=== PATIENT | female | born 1965 | race Caucasian/White ===

== ENCOUNTER 2017-01-05 09:59 | Emergency (ER) | payer BC ==
--- NOTE | 2017-01-05 11:14 | UC ---
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 developed a sore throat, fever and coungestion over the past 2 days. - History of Current Complaint Stated Complaint: SINUSES Time Seen by Provider: 01/05/17 11:08 Hx Obtained From: Patient Hx Last Menstrual Period: 03/30/15 ?: No Onset/Duration: Sudden Onset, Lasting Days Severity: Moderate Cough: Nonproductive Associated Signs & Symptoms: Positive: Dysphagia, Hoarseness, Sinus Discomfort, Fever - Allergies/Home Medications Allergies/Adverse Reactions: Allergies Allergy/AdvReac Type Severity Reaction Status Date / Time Hydrocodone Allergy Intermediate NIGHTMARES Verified 01/05/17 11:30 environmental Allergy Eyes Uncoded 01/05/17 11:30 Itchy/Swollen/Red/Watery PMH/Surg Hx/FS Hx/Imm Hx Previously Healthy: Yes Endocrine History Of: Denies: Diabetes, Thyroid Disease Cardiovascular History Of: Denies: Cardiac Disorders Respiratory History Of: Denies: Asthma - Surgical History Surgical History: Yes Surgery Procedure, Year, and Place: left shoulder, left knee. UTERINE ABLATION - Family History Known Family History: Negative: Hypertension - Social History Alcohol Use: None Substance Use Type: None Smoking Status (MU): Never Smoked Tobacco Household Exposure Type: Cigarettes Review of Systems Constitutional: Fever, Fatigue Skin: Negative Eyes: Negative ENT: Sore Throat, Ear Ache, Nasal Discharge Respiratory: Cough Cardiovascular: Negative Gastrointestinal: Negative Genitourinary: Negative Motor: Negative Musculoskeletal: Negative Neurological: Headache Psychological: Negative All Other Systems Reviewed And Are Negative: Yes Physical Exam Triage Information Reviewed: Yes Appearance: Well-Nourished, Ill-Appearing, Pain Distress Vital Signs Reviewed: Yes Eye Exam: Normal Eyes: Positive: Conjunctiva Clear ENT: Positive: Pharyngeal erythema, Nasal congestion, TMs normal, Tonsillar swelling, Tonsillar exudate Dental Exam: Normal Neck exam: Normal Neck: Positive: Supple, Nontender, Enlarged Nodes @ - right cervical Respiratory Exam: Normal Respiratory: Positive: Chest non-tender, Lungs clear, Normal breath sounds Cardiovascular Exam: Normal Cardiovascular: Positive: RRR, No Murmur, Pulses Normal Abdominal Exam: Normal Abdomen Description: Positive: Nontender, No Organomegaly, Soft Bowel Sounds: Positive: Present Musculoskeletal Exam: Normal Musculoskeletal: Positive: Strength Intact, ROM Intact, No Edema Neurological Exam: Normal Neurological: Positive: Alert, Muscle Tone Normal Psychological Exam: Normal Skin Exam: Normal Throat Pain/Nasal Course/Dx - Course Course Of Treatment: hx obtained, exam performed, meds reviewed, rapid strep obtained and is negative. - Differential Dx/Diagnosis Differential Diagnosis/HQI/PQRI: Influenza, Laryngitis, Otitis Media, Pharyngitis, Sinusitis, URI Provider Diagnoses: Rhinosinusitis. pharyngitis Discharge - Discharge Plan Condition: Stable Disposition: HOME Patient Education Materials: Rhinosinusitis (ED), Pharyngitis (ED) Additional Instructions: 1. take the medication as prescribed. 2. Increase fluid intake and get plenty of rest. 3. Saline washes for the nose, and warm beverages to sooth the throat. 4. Follow up with any increase in symtpoms
[2017-01-05 11:30] VITALS: BP 120/80
== END 2017-01-05 11:55 | disposition home or self-care (01) ==
LOC: UCCORT 09:59
DX: J32.9 Chronic sinusitis, unspecified (principal); J02.9 Acute pharyngitis, unspecified; Z88.5 Allergy status to narcotic agent
CPT/HCPCS: 87651; 99212; G0463

== ENCOUNTER 2017-01-24 09:04 | Emergency (ER) | payer BC ==
[2017-01-24 11:37] VITALS: BP 120/79
--- NOTE | 2017-01-24 11:54 | UC ---
Respiratory Complaint HPI - HPI Summary HPI Summary: Pt presents with c/o cough and SOB and "chest congestion" X 1 week. - History of Current Complaint Chief Complaint: UCGeneralIllness Stated Complaint: RE CK,UPPER RESPIRATORY Time Seen by Provider: 01/24/17 11:27 Hx Obtained From: Patient Hx Last Menstrual Period: 03/30/15 ?: No Onset/Duration: Gradual Onset, Lasting Weeks - over 1 week, Still Present Timing: Constant Severity Initially: Mild Severity Currently: Mild Character: Cough: Nonproductive Aggravating Factors: Deep Breaths, Recumbent Position Alleviating Factors: Nothing Associated Signs And Symptoms: Positive: URI, Nasal Congestion - Allergies/Home Medications Allergies/Adverse Reactions: Allergies Allergy/AdvReac Type Severity Reaction Status Date / Time Hydrocodone Allergy Intermediate NIGHTMARES Verified 01/24/17 11:29 environmental Allergy Eyes Uncoded 01/24/17 11:29 Itchy/Swollen/Red/Watery PMH/Surg Hx/FS Hx/Imm Hx Previously Healthy: Yes - Surgical History Surgical History: Yes Surgery Procedure, Year, and Place: left shoulder, left knee. UTERINE ABLATION , partial hysterectomy - Family History Known Family History: Negative: Hypertension - Social History Lives: With Family Alcohol Use: None Substance Use Type: None Smoking Status (MU): Never Smoked Tobacco Household Exposure Type: Cigarettes Review of Systems Constitutional: Chills Skin: Negative Eyes: Negative ENT: Other - nasal congestion Respiratory: Shortness Of Breath, Cough, Other - chest congestion Cardiovascular: Negative Gastrointestinal: Negative Genitourinary: Negative Motor: Negative Neurovascular: Negative Musculoskeletal: Negative Neurological: Negative Psychological: Negative All Other Systems Reviewed And Are Negative: Yes Physical Exam Triage Information Reviewed: Yes Appearance: Well-Appearing Vital Signs: Initial Vital Signs Temp 97.9 F 01/24/17 11:30 Pulse 80 01/24/17 11:30 Resp 16 01/24/17 11:30 BP 120/79 01/24/17 11:30 Pulse Ox 99 01/24/17 11:30 Vital Signs Reviewed: Yes Eye Exam: Normal ENT Exam: Other ENT: Positive: Nasal congestion Neck exam: Normal Respiratory Exam: Normal Cardiovascular Exam: Normal Musculoskeletal Exam: Normal Psychological Exam: Normal Skin Exam: Normal UC Diagnostic Evaluation - Laboratory O2 Sat by Pulse Oximetry: 99 Respiratory Course/Dx - Differential Dx/Diagnosis Differential Diagnosis/HQI/PQRI: Bronchitis, Other - post viral cough Provider Diagnoses: post viral cough. URI Discharge - Discharge Plan Condition: Stable Disposition: HOME Prescriptions: Albuterol HFA INHALER* [Ventolin HFA Inhaler*] 2 puff INH Q4H PRN #1 mdi PRN Reason: Sob/Wheezing Cetirizine* [ZyrTEC 10 MG TAB*] 10 mg PO DAILY #10 tab Patient Education Materials: Upper Respiratory Infection (ED) Referrals: Art Black MD [Primary Care Provider] - If Needed
== END 2017-01-24 11:57 | disposition home or self-care (01) ==
LOC: UCCORT 09:04
DX: J06.9 Acute upper respiratory infection, unspecified (principal); Z88.5 Allergy status to narcotic agent
CPT/HCPCS: 99212; G0463

== ENCOUNTER 2017-08-19 15:51 | Emergency (ER) | payer BC ==
--- NOTE | 2017-08-19 16:21 | UC ---
Throat Pain/Nasal Gustavo HPI - HPI Summary HPI Summary: 52 year old female presents with complains of sinus congestion and cough. - History of Current Complaint Stated Complaint: SINUS COMPLAINT Time Seen by Provider: 08/19/17 16:21 Hx Obtained From: Patient Hx Last Menstrual Period: 03/30/15 Onset/Duration: Sudden Onset Severity: Moderate Pain Scale Used: 0-10 Numeric - 5 Cough: Nonproductive Associated Signs & Symptoms: Positive: Dysphagia, Sinus Discomfort, Nasal Discharge - Allergies/Home Medications Allergies/Adverse Reactions: Allergies Allergy/AdvReac Type Severity Reaction Status Date / Time Hydrocodone Allergy Intermediate NIGHTMARES Verified 08/19/17 16:22 environmental Allergy Eyes Uncoded 08/19/17 16:22 Itchy/Swollen/Red/Watery Home Medications: Home Medications Venlafaxine TAB (NF) [Effexor TAB (NF)] 08/19/17 [History] PMH/Surg Hx/FS Hx/Imm Hx Previously Healthy: Yes - Surgical History Surgical History: Yes Surgery Procedure, Year, and Place: left shoulder, left knee. UTERINE ABLATION , partial hysterectomy - Family History Known Family History: Negative: Hypertension - Social History Alcohol Use: None Substance Use Type: None Smoking Status (MU): Never Smoked Tobacco Household Exposure Type: Cigarettes Review of Systems Constitutional: Negative Skin: Negative Eyes: Negative ENT: Sore Throat, Nasal Discharge, Sinus Congestion, Sinus Pain/Tenderness Respiratory: Cough Cardiovascular: Negative Gastrointestinal: Negative Genitourinary: Negative Motor: Negative Neurovascular: Negative Musculoskeletal: Negative Neurological: Negative Psychological: Negative All Other Systems Reviewed And Are Negative: Yes Physical Exam Triage Information Reviewed: Yes Appearance: Well-Appearing Vital Signs Reviewed: Yes Eye Exam: Normal ENT: Positive: Pharyngeal erythema, Nasal congestion, Nasal drainage, Sinus tenderness Dental Exam: Normal Neck exam: Normal Neck: Positive: 1 Respiratory: Positive: Wheezing Cardiovascular Exam: Normal Abdominal Exam: Normal Musculoskeletal Exam: Normal Neurological Exam: Normal Psychological Exam: Normal Skin Exam: Normal Throat Pain/Nasal Course/Dx - Differential Dx/Diagnosis Provider Diagnoses: sinus congestion. cough. post nasal drip Discharge - Discharge Plan Condition: Stable Disposition: HOME Prescriptions: Amoxicillin PO (*) [Amoxicillin 875 MG (*)] 875 mg PO BID #20 tab Benzonatate CAP* [Tessalon 100 MG CAP*] 100 mg PO TID PRN #30 cap PRN Reason: Cough LoraTADine TAB(NF) [Claritin 10 MG TAB(NF)] 10 mg PO DAILY #30 tab Promethazine-Dm [Promethazine/Dextromethor 6.25-15 mg/5Ml] 1 teasp PO BEDTIME PRN #90 ml PRN Reason: Cough Patient Education Materials: Sinusitis (ED) Referrals: Art Black MD [Primary Care Provider] -
[2017-08-19 16:22] VITALS: BP 148/96
--- NOTE | 2017-08-20 20:16 | UC ---
- Progress Note Progress Note: per patient developing yeast infection sx desires meds start diflucan and if not better seek medical attn. med sent .
== END 2017-08-19 16:45 | disposition home or self-care (01) ==
LOC: UCCORT 15:51
DX: R09.81 Nasal congestion (principal); R05 Cough; R09.82 Postnasal drip; Z88.5 Allergy status to narcotic agent; Z90.711 Acquired absence of uterus with remaining cervical stump; Z77.22 Contact with and (suspected) exposure to environmental tobacco smoke (acute) (chronic)
CPT/HCPCS: 99212; G0463

== ENCOUNTER 2017-10-11 12:25 | Emergency (ER) | payer BC ==
--- NOTE | 2017-10-11 14:02 | UC ---
UC General HPI - HPI Summary HPI Summary: pt is c/o sinus pressure and congestion, ear pressure, sore throat and of upset stomach with gas and a little diarrhea. this am subjective fever, tx nsaid fire prevention bureau captain. admits to being achy. no cough, cp, sob, n/v or dysuria. self tx otc nasal spray. - History of Current Complaint Stated Complaint: SINUS PRESSURE, EAR PAIN Time Seen by Provider: 10/11/17 13:45 Hx Obtained From: Patient Hx Last Menstrual Period: 03/30/15 Onset/Duration: Gradual Onset, Lasting Days - 7 Timing: Constant Associated Signs & Symptoms: Positive: Diarrhea, Fever, Headache. Negative: Abdominal Pain, Cough, Chest Pain, Dysuria, Nausea, SOB, Vomiting - Allergy/Home Medications Allergies/Adverse Reactions: Allergies Allergy/AdvReac Type Severity Reaction Status Date / Time hydrocodone Allergy See Comment Verified 10/11/17 14:01 environmental Allergy Eyes Uncoded 10/11/17 14:01 Itchy/Swollen/Red/Watery PMH/Surg Hx/FS Hx/Imm Hx Previously Healthy: Yes - Surgical History Surgical History: Yes Surgery Procedure, Year, and Place: left shoulder, left knee. UTERINE ABLATION , partial hysterectomy - Family History Known Family History: Negative: Hypertension - Social History Occupation: Employed Full-time - teacher Lives: With Family Alcohol Use: None Substance Use Type: None Smoking Status (MU): Never Smoked Tobacco Household Exposure Type: Cigarettes - Immunization History Most Recent Influenza Vaccination: NOT CURRENT Vaccination Up to Date: Yes Review of Systems Constitutional: Fever ENT: Sore Throat, Ear Ache, Nasal Discharge, Sinus Congestion, Sinus Pain/ Tenderness Gastrointestinal: Diarrhea Neurological: Headache Is Patient Immunocompromised?: No All Other Systems Reviewed And Are Negative: Yes Physical Exam Triage Information Reviewed: Yes Appearance: Well-Appearing Vital Signs Reviewed: Yes Eyes: Positive: Conjunctiva Clear ENT: Positive: Pharyngeal erythema, Nasal congestion, TMs normal, Uvula midline. Negative: Nasal drainage, Tonsillar swelling, Tonsillar exudate, Trismus, Muffled voice, Hoarse voice, Sinus tenderness Neck: Positive: Supple, Nontender, No Lymphadenopathy Respiratory: Positive: Lungs clear, Normal breath sounds, No respiratory distress Cardiovascular: Positive: RRR, No Murmur, Pulses Normal Abdomen Description: Positive: Nontender, No Organomegaly, Soft. Negative: Distended, Guarding Bowel Sounds: Positive: Present Musculoskeletal: Positive: ROM Intact Neurological: Positive: Alert Psychological: Positive: Age Appropriate Behavior Skin Exam: Normal Diagnostics - Laboratory Diagnostic Studies Completed/Ordered: RAPID STREP AND FLU ARE NEGATIVE Course/Dx - Course Course Of Treatment: STREP AND FLU ARE BOTH NEGATIVE. NOTHING ON EXAM SUPPORTS TX OF BACTERAIL INFECTION. WILL TX NASAL S/S'S WITH NASAL STEROID SPRAY, D/C OTC NASAL DECONGESTANT AND SUGGEST PO DECONGESTANT. - Differential Dx - Multi-Symptom Provider Diagnoses: URI, diarrhea Discharge - Discharge Plan Condition: Stable Disposition: HOME Prescriptions: Fluticasone NASAL SPRAY 50MCG* [Flonase NASAL SPRAY 50MCG*] 2 spray BOTH NARES DAILY 14 Days #1 btl Patient Education Materials: Upper Respiratory Infection (ED), Acute Diarrhea ( ED) Forms: *Work Release Referrals: Art Black MD [Primary Care Provider] - 5 Days Additional Instructions: STOP THE OVER THE COUNTER NASAL DECONGESTANT SPRAY. AN ORAL DECONGESTANT MAY BE HELPFUL
[2017-10-11 14:05] VITALS: BP 129/80
== END 2017-10-11 14:50 | disposition home or self-care (01) ==
LOC: UCCORT 12:25
DX: J06.9 Acute upper respiratory infection, unspecified (principal); R19.7 Diarrhea, unspecified; Z77.22 Contact with and (suspected) exposure to environmental tobacco smoke (acute) (chronic); Z88.5 Allergy status to narcotic agent; Z91.048 Other nonmedicinal substance allergy status
CPT/HCPCS: 87502; 87651; 99212; G0463

== ENCOUNTER 2017-12-21 11:53 | Emergency (ER) | payer BC ==
[2017-12-21 12:14] VITALS: BP 123/68
--- NOTE | 2017-12-21 12:32 | UC ---
Throat Pain/Nasal Gustavo HPI - HPI Summary HPI Summary: Pt c/o nasal congestion, sinus tenderness and left ear pain and "fullness" X 1- 2 weeks. Pt also c/o left upper molar discomfort. - History of Current Complaint Hx Obtained From: Patient Hx Last Menstrual Period: 03/30/15 ?: No Onset/Duration: Gradual Onset, Lasting Weeks, Still Present, Worse Since - osnet Severity: Moderate Pain Intensity: 4 Associated Signs & Symptoms: Positive: Sinus Discomfort Related History: Seasonal Allergies - Epiglottits Risk Factors Epiglottis Risk Factors: Negative <Agnieszka Bueno NP - Last Filed: 12/21/17 12:50> <Adina Ruiz - Last Filed: 12/21/17 14:02> - History of Current Complaint Chief Complaint: UCGeneralIllness Stated Complaint: EARS/NOSE/THROAT COMP Time Seen by Provider: 12/21/17 12:23 - Allergies/Home Medications Allergies/Adverse Reactions: Allergies Allergy/AdvReac Type Severity Reaction Status Date / Time hydrocodone Allergy See Comment Verified 12/21/17 12:11 environmental Allergy Eyes Uncoded 12/21/17 12:11 Itchy/Swollen/Red/Watery Home Medications: Home Medications Desloratidine (NF) [Clarinex (NF)] 5 mg PO DAILY 12/21/17 [History Confirmed ] Ibuprofen TAB* [Motrin TAB* 800 MG] 800 mg PO ONCE 12/21/17 [History Confirmed 12/21/17] PMH/Surg Hx/FS Hx/Imm Hx Previously Healthy: Yes - Surgical History Surgical History: Yes Surgery Procedure, Year, and Place: left shoulder, left knee. UTERINE ABLATION , partial hysterectomy - Family History Known Family History: Negative: Hypertension - Social History Occupation: Employed Full-time Lives: With Family Alcohol Use: None Substance Use Type: None Smoking Status (MU): Never Smoked Tobacco Have You Smoked in the Last Year: No Household Exposure Type: Cigarettes - Immunization History Most Recent Influenza Vaccination: NOT CURRENT Vaccination Up to Date: Yes <Agnieszka Bueno NP - Last Filed: 12/21/17 12:50> Review of Systems Constitutional: Fatigue Skin: Negative Eyes: Negative ENT: Ear Ache, Sinus Congestion, Sinus Pain/Tenderness Respiratory: Negative Cardiovascular: Negative Gastrointestinal: Negative Genitourinary: Negative Motor: Negative Neurovascular: Negative Musculoskeletal: Negative Neurological: Headache Psychological: Negative Is Patient Immunocompromised?: No All Other Systems Reviewed And Are Negative: Yes <Agnieszka Bueno NP Last Filed: 12/21/17 12:50> Physical Exam Triage Information Reviewed: Yes Appearance: Ill-Appearing Vital Signs: Initial Vital Signs Temp 98 F 12/21/17 12:09 Pulse 83 12/21/17 12:09 Resp 18 12/21/17 12:09 BP 123/68 12/21/17 12:09 Pulse Ox 97 12/21/17 12:09 Vital Signs Reviewed: Yes Eye Exam: Normal ENT Exam: Other ENT: Positive: Nasal congestion, TM bulging, Sinus tenderness Dental Exam: Normal Neck exam: Normal Respiratory Exam: Normal Cardiovascular Exam: Normal Musculoskeletal Exam: Normal Neurological Exam: Normal Psychological Exam: Normal Skin Exam: Normal <Agnieszka Bueno NP - Last Filed: 12/21/17 12:50> Vital Signs: Initial Vital Signs Temp 98 F 12/21/17 12:09 Pulse 83 12/21/17 12:09 Resp 18 12/21/17 12:09 BP 123/68 12/21/17 12:09 Pulse Ox 97 12/21/17 12:09 <Adina Ruiz - Last Filed: 12/21/17 14:02> Throat Pain/Nasal Course/Dx - Differential Dx/Diagnosis Differential Diagnosis/HQI/PQRI: Pharyngitis, Sinusitis, URI Provider Diagnoses: sinusitis <Agnieszka Bueno NP Last Filed: 12/21/17 12:50> Discharge - Sign-Out/Discharge Documenting (check all that apply): Discharge/Admit/Transfer - Billing Disposition and Condition Condition: STABLE Disposition: HOME <Agnieszka Bueno NP Last Filed: 12/21/17 12:50> - Billing Disposition and Condition Condition: STABLE Disposition: HOME <Adina Ruiz - Last Filed: 12/21/17 14:02> - Discharge Plan Condition: Stable Disposition: HOME Prescriptions: Amoxicillin PO (*) [Amoxicillin 875 MG (*)] 875 mg PO Q12H #20 tab Fluconazole 100 MG TAB* [Diflucan 100 MG TAB*] 100 mg PO DAILY #2 tab Patient Education Materials: Sinusitis (ED) Forms: *Work Release Referrals: Art Black MD [Primary Care Provider] - If Needed Attestation Statement User Type: Provider - I was available for consult. This patient was seen by the DESTINEY. The patient was not presented to, seen by, or examined by me. -Brandon <Adina Ruiz - Last Filed: 12/21/17 14:02>
== END 2017-12-21 12:46 | disposition home or self-care (01) ==
LOC: UCCORT 11:53
DX: J32.9 Chronic sinusitis, unspecified (principal); Z88.5 Allergy status to narcotic agent
CPT/HCPCS: 99212; G0463

== ENCOUNTER 2017-12-24 20:19 | Emergency (ER) | payer BC ==
[2017-12-24 20:46] VITALS: BP 145/78
--- NOTE | 2017-12-24 20:56 | UC ---
Bite Injury/Animal HPI - HPI Summary HPI Summary: Pt c/o doge bite to left mid, posterior forearm. Pt was training her dog and dog went to get a treat and pt arm was moving away and dog's tooth punctured left forearm. Dog is UTD with vaccinations. Dog is pt's pet. - History of Current Complaint Chief Complaint: UCBiteInjury Stated Complaint: DOG BITE - L FOREARM Time Seen by Provider: 12/24/17 20:49 Hx Obtained From: Patient Hx Last Menstrual Period: 03/30/15 ?: No Severity Currently: Mild Severity Initially: Moderate Pain Intensity: 2 Onset/Duration: Sudden Onset, Still Present Type of Bite: Pet Has Animal Been Immunized?: Yes Character: Puncture Aggravating Factor(s): Other - touch Alleviating Factor(s): Rest Associated Signs And Symptoms: Positive: Swelling Hx of Bite: Unprovoked Animal Available for Observation: Yes Animal Control Notified: No - Risk Factors Infection/Sepsis Risk Factors: Negative - Allergies/Home Medications Allergies/Adverse Reactions: Allergies Allergy/AdvReac Type Severity Reaction Status Date / Time hydrocodone Allergy See Comment Verified 12/24/17 20:46 environmental Allergy Eyes Uncoded 12/24/17 20:46 Itchy/Swollen/Red/Watery Home Medications: Home Medications Fluconazole 100 MG TAB* [Diflucan 100 MG TAB*] 100 mg PO DAILY PRN 12/24/17 [ History Confirmed 12/24/17] PMH/Surg Hx/FS Hx/Imm Hx Previously Healthy: Yes - Surgical History Surgical History: Yes Surgery Procedure, Year, and Place: left shoulder, left knee. UTERINE ABLATION , partial hysterectomy - Family History Known Family History: Negative: Hypertension - Social History Occupation: Employed Full-time Lives: With Family Alcohol Use: None Substance Use Type: None Smoking Status (MU): Never Smoked Tobacco Have You Smoked in the Last Year: No Household Exposure Type: Cigarettes - Immunization History Most Recent Influenza Vaccination: NOT CURRENT Vaccination Up to Date: Yes Review of Systems Constitutional: Negative Skin: Other - puncture wound/dog bite Eyes: Negative ENT: Negative Respiratory: Negative Cardiovascular: Negative Gastrointestinal: Negative Genitourinary: Negative Motor: Negative Neurovascular: Negative Musculoskeletal: Edema - at dog bite site, Myalgia - left forearm Neurological: Negative Psychological: Negative Is Patient Immunocompromised?: No All Other Systems Reviewed And Are Negative: Yes Physical Exam Triage Information Reviewed: Yes Appearance: Well-Appearing Vital Signs: Initial Vital Signs Temp 97.9 F 12/24/17 20:40 Pulse 75 12/24/17 20:40 Resp 16 12/24/17 20:40 BP 145/78 12/24/17 20:40 Pulse Ox 98 12/24/17 20:40 Vital Signs Reviewed: Yes Eye Exam: Normal ENT: Positive: Hearing grossly normal Neck exam: Normal Respiratory: Positive: No respiratory distress Musculoskeletal Exam: Other Musculoskeletal: Positive: Edema @ - left mid forearm posterior aspect Neurological Exam: Normal Psychological Exam: Normal Skin Exam: Other - single puncture wound to left mid forearm, posterior aspect. Bite Injury Course/Dx - Differential Dx/Diagnosis Differential Diagnosis/HQI/PQRI: Puncture Provider Diagnoses: dog bite/puncture wound left forearm Discharge - Sign-Out/Discharge Documenting (check all that apply): Discharge/Admit/Transfer - Discharge Plan Condition: Stable Disposition: HOME Prescriptions: Amoxicillin/Clavulanate TAB* [Augmentin TAB 875*] 875 mg PO BID #14 tab Patient Education Materials: Animal Bite (ED) Referrals: Art Black MD [Primary Care Provider] - If Needed - Billing Disposition and Condition Condition: STABLE Disposition: HOME
== END 2017-12-24 21:14 | disposition home or self-care (01) ==
LOC: UCCORT 20:19
DX: S51.852A Open bite of left forearm, initial encounter (principal); W54.0XXA Bitten by dog, initial encounter; Y93.89 Activity, other specified; Y92.9 Unspecified place or not applicable; Z88.5 Allergy status to narcotic agent
CPT/HCPCS: 99202; G0463

== ENCOUNTER 2018-11-01 10:13 | Emergency (ER) | payer BC ==
[2018-11-01 12:03] VITALS: BP 129/75
--- NOTE | 2018-11-01 12:39 | UC ---
Complaint Female HPI - HPI Summary HPI Summary: See nurse's notes. Pt is concerned because she thinks she can feel a lump in the left lower pelvic area. She self-treated for a yeast infection following a course of antibiotics 2 weeks ago but still says she can smell a vaginal odor. She is sexually active with one person in a monogamous relationship but has no had intercourse in over one month. She said the lump was the size of a quarter and throbbing with sharp pain but has improved today after Motrin and heat to the sore area. - History Of Current Complaint Chief Complaint: UCGU Stated Complaint: PERSONAL Time Seen by Provider: 11/01/18 12:01 Hx Obtained From: Patient Hx Last Menstrual Period: 03/30/15 ?: No Onset/Duration: Gradual Onset Timing: Intermittent Severity Initially: Moderate Severity Currently: Mild Pain Intensity: 5 Character: Sharp, Dull Aggravating Factor(s): Nothing Alleviating Factor(s): Meds - Motrin and heat to the area Associated Signs And Symptoms: Positive: Negative - Allergies/Home Medications Allergies/Adverse Reactions: Allergies Allergy/AdvReac Type Severity Reaction Status Date / Time hydrocodone Allergy See Comment Verified 11/01/18 11:56 environmental Allergy Eyes Uncoded 11/01/18 11:56 Itchy/Swollen/Red/Watery PMH/Surg Hx/FS Hx/Imm Hx Previously Healthy: No - Pt has had URI SX for 3-4 weeks - Surgical History Surgical History: Yes Surgery Procedure, Year, and Place: left shoulder, left knee. UTERINE ABLATION , partial hysterectomy - Family History Known Family History: Negative: Hypertension - Social History Alcohol Use: Occasionally Substance Use Type: None Smoking Status (MU): Never Smoked Tobacco Have You Smoked in the Last Year: No Household Exposure Type: Cigarettes - Immunization History Most Recent Influenza Vaccination: NOT CURRENT Vaccination Up to Date: Yes Review of Systems All Other Systems Reviewed And Are Negative: Yes Constitutional: Positive: Negative Skin: Positive: Other - Painful lump left lower pelvic area Eyes: Positive: Negative ENT: Positive: Negative Respiratory: Positive: Negative Cardiovascular: Positive: Negative Gastrointestinal: Positive: Negative Genitourinary: Positive: Negative. Negative: Dysuria, Frequency, Urgency, Vaginal/Penile Burning, Vaginal/Penile Itching Motor: Positive: Negative Neurovascular: Positive: Negative Musculoskeletal: Positive: Negative Neurological: Positive: Negative Psychological: Positive: Negative Is Patient Immunocompromised?: No Physical Exam Triage Information Reviewed: Yes Appearance: Well-Appearing, No Pain Distress, Well-Nourished Vital Signs: Initial Vital Signs Temp 97.8 F 11/01/18 11:56 Pulse 71 11/01/18 11:56 Resp 16 11/01/18 11:56 BP 129/75 11/01/18 11:56 Pulse Ox 100 11/01/18 11:56 Vital Signs Reviewed: Yes Neck exam: Normal Respiratory Exam: Normal Cardiovascular Exam: Normal Abdominal Exam: Normal Abdomen Description: Positive: Other: - The only thing I feel in the left lower abdomen is a small left inguinal lymph node which is minimally tender on palpation. No erythema, deformity, bruising or swelling. Bowel Sounds: Positive: Present Pelvic Exam: Positive: External Exam Normal, Bimanual Exam Normal, No Cerv. Motion Tender, Discharge - Minimal whitish yeast like discharge in vaginal canal. (Pt does not have a cervix). Negative: Tender Adnexa, Tender Uterus Musculoskeletal Exam: Normal Neurological Exam: Normal Psychological Exam: Normal Skin Exam: Normal Complaint Female Dx - Course Course Of Treatment: Urine sent for GC/Chlamydia/Trichomonas. Probably a yeast infection, but will wait for the culture results. Sonogram of area of concern left lower abdomen showed: Real-time sonography of the left lower quadrant demonstrated several lymph nodes in the subcutaneous tissue measuring 1.2 x 0.4 x 0.6 cm and 1.1 x 0.7 x 0.7 cm. IMPRESSION: Lymph nodes in the subcutaneous fat. No evidence of intra-abdominal lymph nodes or masses are noted. - Differential Dx/Diagnosis Provider Diagnosis: Abdominal pain Discharge - Sign-Out/Discharge Documenting (check all that apply): Patient Departure All imaging exams completed and their final reports reviewed: Yes - Discharge Plan Condition: Good Disposition: HOME Patient Education Materials: Yeast Infection (ED) Forms: *Work Release Referrals: Art Black MD [Primary Care Provider] - Additional Instructions: We will call you with the culture results over the next one or 2 days. In the meantime the sonogram was normal and if you have any worsening symptoms then you should follow up with your primary care provider. - Billing Disposition and Condition Condition: GOOD Disposition: Home
[2018-11-03 10:27] LABS: Neisseria gonorrhoeae (GC) RNA Negative (Negative)
== END 2018-11-01 13:06 | disposition home or self-care (01) ==
LOC: UCCORT 10:13
DX: R10.9 Unspecified abdominal pain (principal); R22.2 Localized swelling, mass and lump, trunk; N89.8 Other specified noninflammatory disorders of vagina; Z88.5 Allergy status to narcotic agent; Z91.09 Other allergy status, other than to drugs and biological substances
CPT/HCPCS: 76705; 87480; 87491; 87510; 87591; 87660; 99212; G0463

== ENCOUNTER 2019-05-17 20:55 | Emergency (ER) | payer BC ==
--- NOTE | 2019-05-17 21:01 | UC ---
Ear Complaint HPI - HPI Summary HPI Summary: 54 yo female presents with right ear pain. She tells me that about 1 week ago she noticed some right facial pain that was just anterior to her right ear. She took ibuprofen and then left for vacation to [place] for 1 week. She tells me that her pain continued during her trip, but was manageable with tylenol and ibuprofen. She returned yesterday and pain has continued. She tried OTC swimmer' s eye drops with no relief. She denies fever, chills, sinus symptoms, tooth pain , ear drainage, decreased hearing, tinnitus, sore throat. - History of Current Complaint Stated Complaint: RIGHT EAR PAIN/SWELLING Time Seen by Provider: 05/17/19 21:00 Hx Obtained From: Patient Hx Last Menstrual Period: 03/30/15 Onset/Duration: Sudden Onset Severity Initially: Moderate Severity Currently: Moderate Pain Intensity: 5 Pain Scale Used: 0-10 Numeric - Allergies/Home Medications Allergies/Adverse Reactions: Allergies Allergy/AdvReac Type Severity Reaction Status Date / Time hydrocodone Allergy See Comment Verified 05/17/19 21:07 environmental Allergy Eyes Uncoded 05/17/19 21:07 Itchy/Swollen/Red/Watery Home Medications: Home Medications Acetaminophen [Acetaminophen Extra Strength] 1,000 mg PO Q6H PRN 05/17/19 [ History Confirmed 05/17/19] Ibuprofen TAB* [Advil TAB*] 800 mg PO Q8H PRN 05/17/19 [History Confirmed ] traZODone TAB* [Desyrel TAB*] 50 mg PO BEDTIME PRN 05/17/19 [History Confirmed 05/17/19] PMH/Surg Hx/FS Hx/Imm Hx Psychological History: Anxiety, Depression - Surgical History Surgical History: Yes Surgery Procedure, Year, and Place: left shoulder, left knee. UTERINE ABLATION , partial hysterectomy - Family History Known Family History: Negative: Hypertension - Social History Lives: With Family Alcohol Use: Occasionally Substance Use Type: None Smoking Status (MU): Never Smoked Tobacco Have You Smoked in the Last Year: No Household Exposure Type: Cigarettes - Immunization History Most Recent Influenza Vaccination: NOT CURRENT Vaccination Up to Date: Yes Review of Systems All Other Systems Reviewed And Are Negative: No Constitutional: Positive: Negative Skin: Positive: Negative Eyes: Positive: Negative ENT: Positive: Ear Ache Respiratory: Positive: Negative Cardiovascular: Positive: Negative Gastrointestinal: Positive: Negative Neurological: Positive: Negative Psychological: Positive: Negative Physical Exam - Summary Physical Exam Summary: GENERAL: NAD. WDWN. No pain distress. SKIN: No rashes, sores, lesions, or open wounds. HEENT: Head: AT/NC Eyes: EOM intact. Conjunctiva clear without inflammation or discharge. Ears: Hearing grossly normal. TMs intact, no bulging, erythema, or edema. Nose: Nasal mucosa pink and moist. NTTP maxillary and frontal sinus. Throat: Posterior oropharynx without exudates, erythema, or tonsillar enlargement. Uvula midline. NECK: Supple. Nontender. No lymphadenopathy. CHEST: CTAB. No accessory muscle use. Breathing comfortably and in no distress. CV: RRR. Pulses intact. Cap refill <2seconds MSK: TTP about right TMJ with notable clicking. Pain with opening jaw at site. NEURO: Alert. PSYCH: Age appropriate behavior. Triage Information Reviewed: Yes Vital Signs: Vital Signs: Temp Pulse Resp BP Pulse Ox 97.7 F 80 15 126/75 99 05/17/19 21:05 05/17/19 21:05 05/17/19 21:05 05/17/19 21:05 05/17/19 21:05 Vital Signs Reviewed: Yes Dental: Negative: Percussion Tenderness @, Gross Decay/Caries @, Dental Fracture @, Abscess @ Ear Complaint Course/Dx - Course Course Of Treatment: Suspect TMJ pain. Upon further questioning, she admits to recently eating a lot of crisp and firm apples over the last 2 weeks as it is apple season. Advised to try a softer food diet. Continue tylenol and will rx for naproxen and medrol humberto. Ice to the area to decrease inflammation - Differential Dx/Diagnosis Provider Diagnosis: Temporomandibular joint (TMJ) pain Discharge ED - Sign-Out/Discharge Documenting (check all that apply): Patient Departure All imaging exams completed and their final reports reviewed: No Studies - Discharge Plan Condition: Stable Disposition: HOME Prescriptions: methylPREDNISolone [Medrol Dosepak 4 MG*] 0 mg PO .SEE HUMBERTO INSTRUCTION #1 humberto Naproxen [Naproxen 500 mg tab] 500 mg PO BID #20 tablet Patient Education Materials: Temporomandibular Disorder (ED) Referrals: Art Black MD [Primary Care Provider] - Additional Instructions: If you develop a fever, shortness of breath, chest pain, new or worsening symptoms - please call your PCP or go to the ED immediately. Your ear and teeth appear healthy today. Your symptoms are most consistent with irritation of the jaw joint (TMJ). I recommend that you continue the tylenol and start taking naproxen as prescribed. Do not take ibuprofen with this as these medications are related and may interact. Refrain from eating large, hard, chewy, or difficult foods. Try a softer diet for a few days - Billing Disposition and Condition Condition: STABLE Disposition: Home
--- OUTSIDE RECORDS SUMMARY | 2019-05-17 21:05 | XMS REPORT | Continuity of Care Document ---
:1965 External Reference #:[id number] Author Name Yumiko Black, YAKOV Address [address] [place] [address] Care Team Providers Name Role Phone Art Black MD - Family Medicine Care Team Information Junior Data Analyst Kiley Ojeda MD - Obstetrics & Care Team Information Junior Data Analyst Gynecology Jerson Stauffer - Orthopaedic Surgery Care Team Information Junior Data Analyst Camden Montgomery PA - Physician Care Team Information Junior Data Analyst Advance Scout Keenan Oliveira MD - Gastroenterology Care Team Information Junior Data Analyst Problems Active Problems Provider Date Partial Tear Of Rotator Cuff Radha Ruiz MD Onset: 08/09/2012 Strain of rotator cuff capsule Radha Ruiz MD Onset: 07/08/2012 Disorder of joint of shoulder region Radha Ruiz MD Onset: 06/10/2012 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 Radha Ruiz MD Onset: 2011 disorder Female climacteric state Radha Ruiz MD Onset: 12/05/2011 Acute maxillary sinusitis Radha Ruiz MD Onset: 06/21/2011 Anxiety state Radha Ruiz MD Onset: 06/24/2010 Moderate recurrent major depression Radha Ruiz MD Onset: 01/16/2009 Migraine with typical aura Radha Ruiz MD Onset: 01/16/2009 Allergic rhinitis Radha Ruiz MD Onset: 12/12/2006 Mechanical complication due to intrauterine Radha Ruiz MD Onset: 2006 contraceptive device Social History Type Date Description Comments Sex Unknown Tobacco Use Start: Unknown Never Smoked Cigarettes ETOH Use Negative For Currently consumes alcohol Recreational Drug Use Denies Drug Use Allergies, Adverse Reactions, Alerts Description No Known Drug Allergies Medications Active Medications SIG Qnty Indications Ordering Date Provider Bupropion 1 by mouth every 90tabs F33.1 [facility], 04/27/2019 Hydrochloride ER (SR) day YAKOV Calderon 200mg Tablets ER 12HR Venlafaxine HCL 1 by mouth every 90tabs G43.109 [facility], 03/31/2018 75mg day YAKOV Calderon Tablets Desloratadine take one tablet 90tabs [facility], 04/27/2013 5mg Tablets by mouth every Yumiko, YAKOV day Ibuprofen take one tablet 100tabs [facility]ia, 06/10/2012 800mg Tablets by mouth every 8 YAKOV Calderon hours with food or snack as needed for pain Trazodone HCL 2 by mouth every 180tabs F51.04 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 History Medications Bupropion HCL ER (SR) 1 by mouth 90tabs F33.1 Yumiko Black, 2018 - every day STAMP COLLECTOR 04/27/2019 200mg Tablets ER 12HR Fluconazole 1 by mouth 2tabs Yumiko Black, 11/24/2018 - 150mg Tablets today, repeat STAMP COLLECTOR 04/27/2019 in 2 days Bupropion 1 by mouth once 30tabs F33.1 Yumiko Black, 11/12/2018 - Hydrochloride ER (SR) a day STAMP COLLECTOR 11/24/2018 150mg Tablets ER 12HR Bupropion 1 by mouth once 90tabs F33.1 Yumiko Black, 11/12/2018 - Hydrochloride ER (SR) a day STAMP COLLECTOR 04/27/2019 150mg Tablets ER 12HR Immunizations CPT Code Status Date Vaccine Lot # [id number] Given 04/27/2019 Influenza Vac, Quadrivalent, Split, 0.5mL Dosage, [id number] Im Use [id number] Given 09/05/2015 Influenza Vac, Quadrivalent, Split, 0.5mL Dosage, [id number] Im Use 47130 Given 11/16/2014 Tdap (Adacel) Ages 7 And Above Only [id number] Given 05/07/2009 Afluria Or Fluvirin Flu Vac Intramuscular 49194 Given 05/07/2009 Afluria Or Fluvirin Flu Vac Intramuscular 53156 Given 07/13/2001 Afluria Or Fluvirin Flu Vac Intramuscular [id number] Refused 11/24/2018 Influenza Vac, Quadrivalent, Split, 0.5mL Dosage, Im Use Vital Signs Date Vital Result Comment 04/27/2019 1:43pm Weight 192.00 lb BP Systolic 122 mmHg BP Diastolic 76 mmHg Height 62.75 inches 5'2.75" BMI (Body Mass Index) 34.3 kg/m2 12/01/2018 3:48pm Body Temperature 96.8 F Weight 194.00 lb Heart Rate 76 /min BP Systolic 140 mmHg said she had a very stressful day BP Diastolic 90 mmHg said she had a very stressful day Respiratory Rate 16 /min Height 63.5 inches 5'3.50" O2 % BldC Oximetry 98 % BMI (Body Mass Index) 33.8 kg/m2 Urine Dipstick - Blood neg Urine Dipstick - Protein neg Urine Dipstick - Glucose neg Urine Dipstick - Leukocytes neg Results Test Date Facility Test Result H/L Range Note Affirm 12/01/2018 [facility] Trichomonas Vaginalis Negative Negative [facility] Vaginalis Negative Negative Pratibha Species Negative Negative Affirm 11/24/2018 [facility] Trichomonas Vaginalis Negative Negative Gard[facility] Vaginalis Negative Negative Pratibha Species Negative Negative Drugs of Abuse w/o 11/24/2018 [facility] Amphetamines,Urine NEGATIVE <1000 ng/mL [facility] Barbiturates,Urine NEGATIVE <200 ng/mL Benzodiazepines, Urine NEGATIVE <200 ng/mL Bupernorphrine/Norbu,Urine NEGATIVE <10 ng/mL Cocaine Metabolites,Urine NEGATIVE <300 ng/mL Methadone,Urine NEGATIVE <300 ng/mL Opiates,Urine NEGATIVE <300 ng/mL Oxycodone,Urine NEGATIVE <100 ng/mL Phencyclidine,Urine NEGATIVE <25 ng/mL Procedures Date Code Description Status 02/28/2016 [id number] Mammogram Completed Medical Devices Description No Information Available Encounters Type Date Location Provider Dx Diagnosis Office Visit 12/01/2018 Yumiko Greenwood NP E66.9 Obesity, unspecified 3:45p N76.0 Acute vaginitis Z68.33 Body mass index (BMI) 33.0-33.9, adult Office Visit 11/24/2018 12:15p [place] Yumiko Black, STAMP COLLECTOR E66.9 Obesity, unspecified F41.9 Anxiety disorder, unspecified N76.0 Acute vaginitis Z68.33 Body mass index (BMI) 33.0-33.9, adult Assessments Date Code Description Provider 04/27/2019 E66.9 Obesity, unspecified Yumiko Black, STAMP COLLECTOR 04/27/2019 F41.9 Anxiety disorder, unspecified CliffYumiko goldman, STAMP COLLECTOR 04/27/2019 Z68.34 Body mass index (BMI) 34.0-34.9, adult Yumiko Black, STAMP COLLECTOR 04/27/2019 Z23 Encounter for immunization [facility] Yumiko, STAMP COLLECTOR 12/01/2018 E66.9 Obesity, unspecified Sofia Yumiko, STAMP COLLECTOR 12/01/2018 N76.0 Acute vaginitis Yumiko Black, STAMP COLLECTOR 12/01/2018 Z68.33 Body mass index (BMI) 33.0-33.9, adult Yumiko Black, STAMP COLLECTOR 12/01/2018 E66.9 Obesity, unspecified [facility] 12/01/2018 N76.0 Acute vaginitis [facility] 11/24/2018 E66.9 Obesity, unspecified CliffYumiko goldman, STAMP COLLECTOR 11/24/2018 F41.9 Anxiety disorder, unspecified [facility] Yumiko, STAMP COLLECTOR 11/24/2018 N76.0 Acute vaginitis Yumiko Black, STAMP COLLECTOR 11/24/2018 Z68.33 Body mass index (BMI) 33.0-33.9, adult [facility] Yumiko, STAMP COLLECTOR 11/24/2018 N89.8 Other specified noninflammatory disorders of [facility] vagina 11/24/2018 F41.9 Anxiety disorder, unspecified [facility] 11/24/2018 Z79.899 Other intermediate project manager (current) drug therapy [facility] Plan of Treatment 04/27/2019 - Domitila Blacketta, NPE66.9 Obesity, [id number] Anxiety disorder, unspecifiedComments:increased the [id number] Body mass index ( BMI) 34.0-34.9, [id number] Encounter for immunizationAllNew Medication:Bupropion Hydrochloride ER (SR) 200 mg - 1 by mouth every dayBupropion HCL ER (SR) 200 mg - 1 by mouth every day Functional Status Description No Information Available Mental Status Description No Information Available Referrals Refer to Reason for Referral Status Appt Date [facility] faxed referral and info, waiting to hear back with Closed appt info. 12/02/[address] [place] [id number] [phone]
[2019-05-17 21:11] VITALS: BP 126/75
[2019-05-17] MEDS ORDERED: Naproxen TAB* 250 MG PO ONE (21:32)
== END 2019-05-17 21:36 | disposition home or self-care (01) ==
LOC: UCCORT 20:55
DX: M26.621 Arthralgia of right temporomandibular joint (principal); H92.01 Otalgia, right ear; Z88.5 Allergy status to narcotic agent; Z91.09 Other allergy status, other than to drugs and biological substances
CPT/HCPCS: 99212; A9270-GY; G0463

== ENCOUNTER 2019-07-25 19:42 | Emergency (ER) | payer BC ==
[2019-07-25 20:07] VITALS: BP 128/83
[2019-07-25] MEDS ORDERED: Amoxicillin/Clavulanate TAB* 875 MG PO ONE (20:41)
--- NOTE | 2019-07-25 20:42 | UC ---
Throat Pain/Nasal Gustavo HPI - HPI Summary HPI Summary: 54-year-old woman comes in with a chief complaint of 2-1/2 weeks of upper respiratory tract infection symptoms. She's had yellow rhinorrhea sinus pressure postnasal drip. She has a sore throat she is having lymphadenopathy in her anterior neck. Trying different [id number] medications was helped briefly but overall she's getting worse rather than better. No complaint of any shortness of breath. - History of Current Complaint Chief Complaint: UCRespiratory Stated Complaint: SWOLLEN GLAND Time Seen by Provider: 07/25/19 20:34 Hx Last Menstrual Period: s/p ablation Pain Intensity: 7 - Allergies/Home Medications Allergies/Adverse Reactions: Allergies Allergy/AdvReac Type Severity Reaction Status Date / Time hydrocodone Allergy See Comment Verified 07/25/19 20:02 environmental Allergy Eyes Uncoded 07/25/19 20:02 Itchy/Swollen/Red/Watery Home Medications: Home Medications Guaifenesin/Dextromethorphan [Mucinex Dm Maximum Streng 60-1200 mg] 1 tab PO Q12H PRN 07/25/19 [History Confirmed 07/25/19] PMH/Surg Hx/FS Hx/Imm Hx Previously Healthy: Yes - Surgical History Surgical History: Yes Surgery Procedure, Year, and Place: left shoulder, left knee. UTERINE ABLATION , partial hysterectomy - Family History Known Family History: Negative: Hypertension - Social History Alcohol Use: None Substance Use Type: None Smoking Status (MU): Never Smoked Tobacco Have You Smoked in the Last Year: No Household Exposure Type: Cigarettes - Immunization History Most Recent Influenza Vaccination: NOT CURRENT Vaccination Up to Date: Yes Review of Systems All Other Systems Reviewed And Are Negative: Yes Constitutional: Positive: Other - SEE HPI Skin: Positive: Negative Eyes: Positive: Negative ENT: Positive: Sore Throat, Nasal Discharge, Sinus Congestion, Sinus Pain/ Tenderness Respiratory: Positive: Cough, Other - SEE HPI Cardiovascular: Positive: Negative Gastrointestinal: Positive: Negative Motor: Positive: Negative Neurovascular: Positive: Negative Musculoskeletal: Positive: Negative Neurological: Positive: Negative Psychological: Positive: Negative Is Patient Immunocompromised?: No Physical Exam Triage Information Reviewed: Yes Appearance: No Pain Distress, Well-Nourished, Ill-Appearing - MILD Vital Signs: Initial Vital Signs Temp 98.3 F 07/25/19 19:59 Pulse 76 07/25/19 19:59 Resp 18 07/25/19 19:59 BP 128/83 07/25/19 19:59 Pulse Ox 99 07/25/19 19:59 Vital Signs Reviewed: Yes Eye Exam: Normal Eyes: Positive: Conjunctiva Clear ENT: Positive: Pharyngeal erythema, Nasal congestion, Nasal drainage, TMs normal , Sinus tenderness Neck: Positive: Supple, Enlarged Nodes @ - ANTERIOR Respiratory: Positive: Lungs clear, Normal breath sounds, No respiratory distress Cardiovascular: Positive: RRR Musculoskeletal: Positive: Strength Intact, ROM Intact Neurological: Positive: Alert, Muscle Tone Normal Psychological: Positive: Age Appropriate Behavior Skin Exam: Normal Throat Pain/Nasal Course/Dx - Differential Dx/Diagnosis Provider Diagnosis: Sinusitis Discharge ED - Sign-Out/Discharge Documenting (check all that apply): Patient Departure All imaging exams completed and their final reports reviewed: No Studies - Discharge Plan Condition: Stable Disposition: HOME Prescriptions: Amoxicillin/Clavulanate TAB* [Augmentin TAB 875*] 875 mg PO BID #19 tab Fluticasone NASAL SPRAY 50MCG* [Flonase NASAL SPRAY 50MCG*] 2 spray BOTH NARES DAILY #1 btl Patient Education Materials: Sinusitis (ED) Referrals: Art Black MD [Primary Care Provider] - Additional Instructions: FOLLOW UP WITH YOUR DOCTOR IF NOT COMPLETELY IMPROVED. GET REEVALUATED SOONER IF NOT IMPROVING OR WORSE OR ANY QUESTIONS OR CONCERNS. - Billing Disposition and Condition Condition: STABLE Disposition: Home
== END 2019-07-25 20:50 | disposition home or self-care (01) ==
LOC: UCCORT 19:42
DX: J32.9 Chronic sinusitis, unspecified (principal); J02.9 Acute pharyngitis, unspecified; R05 Cough; Z88.5 Allergy status to narcotic agent; Z91.09 Other allergy status, other than to drugs and biological substances
CPT/HCPCS: 99212; A9270-GY; G0463